=== PATIENT | male | born 1945 | race Two or more races ===

== ENCOUNTER 2016-10-08 18:01 | Emergency (ER) | payer OTHER ==
[~2016-10-08] VITALS: Ht 167.6 cm; Wt 95.3 kg
[~2016-10-08 18:01] MED LIST: ATOR40TA52 PO; CARV3.1240 PO; FURO40TA4 PO; GLIP2.5T28 PO; LISI10TA6 PO; METF-489 PO
[2016-10-09 06:06] VITALS: BP 120/76
== END 2016-10-09 06:36 | disposition home or self-care (01) ==
LOC: ER 19:05
DX: L03.116 Cellulitis of left lower limb (principal); M79.89 Other specified soft tissue disorders; E11.22 Type 2 diabetes mellitus with diabetic chronic kidney disease; I13.0 Hypertensive heart and chronic kidney disease with heart failure and stage 1 through stage 4 chronic kidney disease, or unspecified chronic kidney disease; N18.9 Chronic kidney disease, unspecified; I50.9 Heart failure, unspecified; Z95.1 Presence of aortocoronary bypass graft; J44.9 Chronic obstructive pulmonary disease, unspecified; F12.10 Cannabis abuse, uncomplicated; Z88.0 Allergy status to penicillin; Z79.899 Other long term (current) drug therapy
CPT/HCPCS: 93971

== ENCOUNTER 2016-11-09 11:05 | Emergency (ER) | payer OTHER ==
[~2016-11-09] VITALS: Ht 167.6 cm; Wt 97.5 kg
[2016-11-09 14:06] VITALS: BP 139/76
[2016-11-09] MEDS ORDERED: traMADol HCL 50 MG TAB PO ONE (14:45)
[2016-11-09] MEDS ORDERED: KETOROLAC TROMETH 30 MG/ML 1ML VIAL IV ONE (14:45)
[2016-11-09] MEDS ORDERED: KETOROLAC TROMETH 30 MG/ML 1ML VIAL IM ONE (15:00)
== END 2016-11-09 15:48 | disposition home or self-care (01) ==
LOC: ER 11:23
DX: M51.36 Other intervertebral disc degeneration, lumbar region (principal); M47.896 Other spondylosis, lumbar region; I13.0 Hypertensive heart and chronic kidney disease with heart failure and stage 1 through stage 4 chronic kidney disease, or unspecified chronic kidney disease; I50.9 Heart failure, unspecified; E11.22 Type 2 diabetes mellitus with diabetic chronic kidney disease; Z88.0 Allergy status to penicillin; N18.9 Chronic kidney disease, unspecified; E78.5 Hyperlipidemia, unspecified; Z95.1 Presence of aortocoronary bypass graft; F12.10 Cannabis abuse, uncomplicated; Z87.891 Personal history of nicotine dependence; Z79.899 Other long term (current) drug therapy
CPT/HCPCS: 72100; 96372; J1885

== ENCOUNTER 2017-11-18 00:10 | Inpatient (IN) | payer OTHER ==
[~2017-11-18] VITALS: Ht 180.3 cm; Wt 84.4 kg
[2017-11-18] MEDS ORDERED: ALBUTEROL SULF 2.5 MG/0.5ML(0.5%) NEB SOLN NEB ONE (01:00)
[2017-11-18] MEDS ORDERED: methylPREDNISolone SOD SUCC 125 MG/2 ML VL IV ONE (01:00)
[2017-11-18] MEDS ORDERED: IPRATROPIUM BROM 0.5 MG/2.5ML INH SOL NEB ONE (01:00)
[2017-11-18 01:24] LABS: Urine Bacteria NONE SEEN /hpf (None Seen); Urine Blood Negative /uL (Negative); Urine Mucus FEW (None Seen); Urine Specific Gravity 1.009 (1.001-1.035); Urine WBC 4 /hpf (0 - 3)
[2017-11-18 02:21] LABS: Basophils # (auto) 0.2 uL; Basophils % (auto) 3.1 % (0.0-2.0); Eosinophils # (auto) 0.1 uL; Eosinophils % (auto) 1.6 % (0.0-7.0); Hematocrit 37.4 % (41.0-53.0); Lymphocytes # (auto) 0.7 uL; Mean Corpuscular Hemoglobin 30.1 pg (28.0-32.0); Monocytes # (auto) 0.8 uL; Monocytes % (auto) 12.1 % (0.0-12.0); Neutrophils # (auto) 4.6 uL; Neutrophils % (auto) 72.2 % (37.0-80.0); Nucleated Red Blood Cells % 0.2 %; Platelet Count (auto) 207 10^3/uL (140-450); Red Blood Cells 3.97 10^6/uL (4.5-5.90); Red Cell Distribution Width 17.8 % (11.8-14.3); White Blood Cell 6.4 10^3/uL (4.4-10.8)
[2017-11-18 02:23] LABS: Albumin 3.7 g/dL (3.4-5.0); BUN/Creatinine Ratio 22.8; Calcium 8.7 mg/dL (8.5-10.1)
[2017-11-18 02:26] LABS: Bilirubin, Total 0.7 mg/dL (0.2-1.0); Total Protein 7.5 g/dL (6.4-8.2)
[2017-11-18 02:36] LABS: INR 2.13 (0.9-1.15); Prothrombin Time 23.4 sec (9.37-12.3)
[2017-11-18] MEDS ORDERED: LORazepam 2MG/ML-1ML VIAL IV ONE (04:15)
[2017-11-18] MEDS ORDERED: NITROGLYCERIN 0.4 MG SL TAB SL PRN (10:15)
[2017-11-18] MEDS ORDERED: POTASSIUM CHL 20MEQ/100ML 100 ML IV ONE (10:15)
[2017-11-18] MEDS ORDERED: FUROSEMIDE 40 MG/4 ML VIAL IV ONE (10:15)
[2017-11-18] MEDS ORDERED: DEXTROSE (50%) 50ML SYRG IV PRN (10:15)
[2017-11-18] MEDS ORDERED: ONDANSETRON HCL 4 MG/2 ML VIAL IV PRN (10:15)
[2017-11-18] MEDS ORDERED: HYDROcodone-ACET 5/325MG TAB PO PRN (10:15)
[2017-11-18] MEDS ORDERED: MORPHINE SULFATE 4 MG/ML SYR/VIAL IV PRN ×2 (10:15)
[2017-11-18] MEDS ORDERED: FUROSEMIDE 20 MG/2 ML VIAL IV ONE (10:30)
[2017-11-18] MEDS ORDERED: glipiZIDE 5 MG TAB PO SCH (10:45)
[2017-11-18 10:47] LABS: Cholesterol 132 mg/dL (< 200); HDL Cholesterol 60 mg/dL (40-59); LDL Cholesterol 75 mg/dL (< 100); Triglycerides 38 mg/dL (< 150)
[2017-11-18] MEDS: CARVEDILOL 3.125 MG TAB PO SCH ×2 (11:01→21:01)
[2017-11-18] MEDS: glipiZIDE 5 MG TAB PO SCH ×2 (11:01→19:10)
[2017-11-18] MEDS: LISINOPRIL 10 MG TAB PO SCH (11:02)
[2017-11-18] MEDS ORDERED: POTASSIUM CHLORIDE 20 MEQ, LIDOCAINE 1% (LOCAL ANESTH.) 2 ML in SODIUM CHL 0.9% 100 ML IV ONE (11:30)
[2017-11-18] MEDS: ACCU-CHEK COMFORT CURVE STRIP VI SCH ×3 (11:31→21:02)
[2017-11-18] MEDS: InsuLIN REG 1unit/0.01ml Soln (100units/ml) SC SCH ×3 (11:32→21:30)
[2017-11-18] MEDS: IPRATROPIUM BROM 0.5 MG/2.5ML INH SOL NEB SCH ×2 (13:01→18:10)
[2017-11-18] MEDS: ALBUTEROL SULF 2.5 MG/0.5ML(0.5%) NEB SOLN NEB SCH ×2 (13:01→18:10)
[2017-11-18] MEDS ORDERED: WARFARIN SODIUM 2 MG TAB PO ONE (17:00)
[2017-11-18 18:33] VITALS: BP 106/70
[2017-11-18] MEDS: FUROSEMIDE 40 MG/4 ML VIAL IV SCH (19:09)
[2017-11-18 19:29] VITALS: BP 106/70
[2017-11-18] MEDS: ATORVASTATIN 20 MG TAB PO SCH (21:02)
[2017-11-18 21:22] VITALS: BP 112/68
[2017-11-18 22:00] VITALS: BP 112/68
[2017-11-18] MEDS ORDERED: GLIPIZIDE 2.5 MG PO SCH (22:00)
[2017-11-19] MEDS ORDERED: TEMAZEPAM 15 MG CAP PO PRN (00:15)
[2017-11-19 05:00] VITALS: BP 93/54
[2017-11-19 05:39] LABS: Basophils # (auto) 0 uL; Basophils % (auto) 0.1 % (0.0-2.0); Eosinophils # (auto) 0 uL; Hematocrit 37.9 % (41.0-53.0); Hemoglobin 12.2 g/dL (13.5-17.5); Lymphocytes # (auto) 0.9 uL; Lymphocytes % (auto) 8.3 % (10.0-50.0); Mean Corpuscular Hemoglobin 30.1 pg (28.0-32.0); Mean Corpuscular Hgb Conc. 32.3 g/dL (32.0-36.0); Mean Corpuscular Volume 93.2 fL (80.0-100.0); Monocytes # (auto) 1.3 uL; Monocytes % (auto) 11.7 % (0.0-12.0); Neutrophils # (auto) 8.7 uL; Neutrophils % (auto) 79.9 % (37.0-80.0); Nucleated Red Blood Cells % 0.1 %; Platelet Count (auto) 238 10^3/uL (140-450); Red Blood Cells 4.06 10^6/uL (4.5-5.90); Red Cell Distribution Width 17.9 % (11.8-14.3); White Blood Cell 10.9 10^3/uL (4.4-10.8)
[2017-11-19] MEDS: FUROSEMIDE 40 MG/4 ML VIAL IV SCH (05:41)
[2017-11-19 05:56] LABS: INR 3.4 (0.9-1.15); Partial Thromboplastin Time 38.5 sec (22.64-33.71); Prothrombin Time 37.5 sec (9.37-12.3)
[2017-11-19 05:57] LABS: Potassium 3.9 mmol/L (3.5-5.1)
[2017-11-19 06:10] LABS: Calcium 8.7 mg/dL (8.5-10.1); Magnesium 2.3 mg/dL (1.6-2.6)
[2017-11-19] MEDS: ALBUTEROL SULF 2.5 MG/0.5ML(0.5%) NEB SOLN NEB SCH ×3 (08:45→19:06)
[2017-11-19] MEDS: IPRATROPIUM BROM 0.5 MG/2.5ML INH SOL NEB SCH ×3 (08:45→19:06)
[2017-11-19 09:00] VITALS: BP 111/67
[2017-11-19] MEDS: LISINOPRIL 10 MG TAB PO SCH (10:00)
[2017-11-19] MEDS ORDERED: PATIENTS OWN MEDICATION (Atorvastatin Calcium 1 TAB) PO SCH (10:00)
[2017-11-19] MEDS: CARVEDILOL 3.125 MG TAB PO SCH ×2 (10:00→22:00)
[2017-11-19] MEDS: ACCU-CHEK COMFORT CURVE STRIP VI SCH ×3 (11:30→22:05)
[2017-11-19 13:00] VITALS: BP 119/70
[2017-11-19 16:39] VITALS: BP 104/65
[2017-11-19] MEDS: InsuLIN REG 1unit/0.01ml Soln (100units/ml) SC SCH ×2 (17:00→22:00)
[2017-11-19] MEDS: glipiZIDE 5 MG TAB PO SCH (18:00)
[2017-11-19] MEDS ORDERED: WARF4TAB33 PO (20:04)
[2017-11-19] MEDS ORDERED: TRAZ150T79 PO (20:04)
[2017-11-19] MEDS ORDERED: MIRT15TA3 PO (20:04)
[2017-11-19] MEDS ORDERED: AMIO200T33 PO (20:04)
[2017-11-19 22:00] VITALS: BP 131/72
[2017-11-19] MEDS ORDERED: traZODone HCL 50 MG TAB PO ONE (22:00)
[2017-11-19] MEDS: ATORVASTATIN 20 MG TAB PO SCH (22:04)
[2017-11-20] MEDS: IPRATROPIUM BROM 0.5 MG/2.5ML INH SOL NEB SCH (00:15)
[2017-11-20] MEDS: ALBUTEROL SULF 2.5 MG/0.5ML(0.5%) NEB SOLN NEB SCH (00:15)
== END 2017-11-20 01:15 | disposition short-term general hospital (02) | DRG 189 ==
LOC: EDBD 00:10 → ER 00:10 → TELE 00:11 → TELE-WESTW 18:35
PROVIDERS: ADMIT Internal Medicine; ATTEND Family Medicine
PROC: 5A09357 Assistance with Respiratory Ventilation, Less than 24 Consecutive Hours, Continuous Positive Airway Pressure (ICD-10-PCS; principal; 2017-11-18)
DX: J96.20 Acute and chronic respiratory failure, unspecified whether with hypoxia or hypercapnia (principal); I50.43 Acute on chronic combined systolic (congestive) and diastolic (congestive) heart failure; E11.22 Type 2 diabetes mellitus with diabetic chronic kidney disease; Z99.81 Dependence on supplemental oxygen; E66.01 Morbid (severe) obesity due to excess calories; I13.0 Hypertensive heart and chronic kidney disease with heart failure and stage 1 through stage 4 chronic kidney disease, or unspecified chronic kidney disease; J44.1 Chronic obstructive pulmonary disease with (acute) exacerbation; N18.3 Chronic kidney disease, stage 3 (moderate); D53.9 Nutritional anemia, unspecified; E78.5 Hyperlipidemia, unspecified; F12.10 Cannabis abuse, uncomplicated; N40.0 Benign prostatic hyperplasia without lower urinary tract symptoms; F32.9 Major depressive disorder, single episode, unspecified; I08.0 Rheumatic disorders of both mitral and aortic valves; G47.00 Insomnia, unspecified; F17.210 Nicotine dependence, cigarettes, uncomplicated; E66.9 Obesity, unspecified; Z95.2 Presence of prosthetic heart valve; Z79.01 Long term (current) use of anticoagulants; Z80.6 Family history of leukemia; Z82.3 Family history of stroke; Z82.49 Family history of ischemic heart disease and other diseases of the circulatory system; Z83.3 Family history of diabetes mellitus; Z91.14 Patient's other noncompliance with medication regimen; Z91.19 Patient's noncompliance with other medical treatment and regimen; Z95.1 Presence of aortocoronary bypass graft; Z68.26 Body mass index [BMI] 26.0-26.9, adult; Z79.899 Other long term (current) drug therapy; Z80.8 Family history of malignant neoplasm of other organs or systems; Z88.0 Allergy status to penicillin
CPT/HCPCS: 36415; 36600; 71045; 74176; 80048; 80053; 80061; 81001; 82805; 82962; 83036; 83735; 83880; 84484; 85025; 85379; 85610; 85730; 87081; 93005; 93306; 94640; 94660; 96361; 96374; 96375; J1815; J2001; J3480

== ENCOUNTER 2019-08-11 14:30 | Emergency (ER) | payer OTHER ==
[~2019-08-11] VITALS: Ht 167.6 cm; Wt 95.3 kg
[~2019-08-11 14:30] MED LIST changes: +AMIO200T33 PO; +MIRT1TAB38 PO; +TRAZ150T79 PO; +WARF4TAB33 PO
[2019-08-11 15:12] LABS: Basophils # (auto) 0.1 uL; Basophils % (auto) 1.1 % (0.0-2.0); Eosinophils # (auto) 0.2 uL; Hematocrit 32.9 % (41.0-53.0); Hemoglobin 11.1 g/dL (13.5-17.5); Lymphocytes # (auto) 1.2 uL; Lymphocytes % (auto) 22.1 % (10.0-50.0); Mean Corpuscular Hgb Conc. 33.8 g/dL (32.0-36.0); Mean Corpuscular Volume 100.7 fL (80.0-100.0); Monocytes # (auto) 0.5 uL; Monocytes % (auto) 9.4 % (0.0-12.0); Neutrophils # (auto) 3.6 uL; Neutrophils % (auto) 63.4 % (37.0-80.0); Platelet Count (auto) 237 10^3/uL (140-450); Red Blood Cells 3.27 10^6/uL (4.5-5.90); Red Cell Distribution Width 18.3 % (11.8-14.3); White Blood Cell 5.6 10^3/uL (4.4-10.8)
[2019-08-11 15:30] LABS: Albumin 4.1 g/dL (3.4-5.0); Calcium 8.7 mg/dL (8.5-10.1); Potassium 3.8 mmol/L (3.5-5.1)
[2019-08-11 15:33] LABS: BUN/Creatinine Ratio 18.9; Bilirubin, Total 1.2 mg/dL (0.2-1.0); Total Protein 7.6 g/dL (6.4-8.2)
[2019-08-11 20:00] VITALS: BP 116/68
== END 2019-08-11 19:58 | disposition home or self-care (01) ==
LOC: ER 14:37
DX: I13.0 Hypertensive heart and chronic kidney disease with heart failure and stage 1 through stage 4 chronic kidney disease, or unspecified chronic kidney disease (principal); E11.22 Type 2 diabetes mellitus with diabetic chronic kidney disease; N18.3 Chronic kidney disease, stage 3 (moderate); I50.9 Heart failure, unspecified; J44.9 Chronic obstructive pulmonary disease, unspecified; E78.5 Hyperlipidemia, unspecified
CPT/HCPCS: 36415; 74176; 80053; 85025

== ENCOUNTER 2019-12-12 16:36 | Emergency (ER) | payer OTHER ==
[~2019-12-12] VITALS: Ht 167.6 cm; Wt 102.1 kg
[2019-12-12 17:01] VITALS: BP 133/78
[2019-12-12 18:05] LABS: Basophils # (auto) 0.1 10 ^3/uL (0-0.2); Basophils % (auto) 1.4 % (0.0-2.0); Eosinophils # (auto) 0.2 10 ^3/uL (0-0.8); Eosinophils % (auto) 4.3 % (0.0-7.0); Hematocrit 32.3 % (41.0-53.0); Hemoglobin 10.8 g/dL (13.5-17.5); Lymphocytes # (auto) 1.1 10 ^3/uL (0.4-5.4); Lymphocytes % (auto) 22.8 % (10.0-50.0); Mean Corpuscular Hemoglobin 33.8 pg (28.0-32.0); Mean Corpuscular Hgb Conc. 33.4 g/dL (32.0-36.0); Mean Corpuscular Volume 101.2 fL (80.0-100.0); Monocytes # (auto) 0.6 10 ^3/uL (0-1.3); Neutrophils # (auto) 2.8 10 ^3/uL (1.6-8.6); Neutrophils % (auto) 58.5 % (37.0-80.0); Platelet Count (auto) 160 10^3/uL (140-450); Red Blood Cells 3.19 10^6/uL (4.5-5.90); Red Cell Distribution Width 19.3 % (11.8-14.3); White Blood Cell 4.8 10^3/uL (4.4-10.8)
[2019-12-12 18:09] LABS: Albumin 3.4 g/dL (3.4-5.0); Anion Gap 2 (5-15); Blood Urea Nitrogen 18 mg/dL (7-18); Calcium 9.1 mg/dL (8.5-10.1); Carbon Dioxide 33 mmol/L (21-32); Chloride 108 mmol/L (98-107); Glucose 120 mg/dL (74-106); Potassium 4.2 mmol/L (3.5-5.1); Sodium 143 mmol/L (136-145)
[2019-12-12 18:14] LABS: Alanine Aminotransferase 36 U/L (16-61); Alkaline Phosphatase 70 U/L (45-117); Aspartate Aminotransferase 63 U/L (15-37); BUN/Creatinine Ratio 18.4; Bilirubin, Total 0.9 mg/dL (0.2-1.0); GFR African American 97 mL/min; GFR Non-African American 80 mL/min; Total Protein 6.8 g/dL (6.4-8.2)
== END 2019-12-13 02:29 | disposition left against medical advice (07) ==
LOC: ER 16:36
DX: R06.02 Shortness of breath (principal); Z53.21 Procedure and treatment not carried out due to patient leaving prior to being seen by health care provider
CPT/HCPCS: 36415; 71046; 80053; 84484; 85025; 93005

== ENCOUNTER 2020-06-21 21:48 | Emergency (ER) | payer OTHER ==
[~2020-06-21] VITALS: Ht 167.6 cm; Wt 90.7 kg
[~2020-06-21 21:48] MED LIST changes: +LISI-648 PO; -LISI10TA6 PO; -TRAZ150T79 PO; +TRAZ1TAB12 PO
[2020-06-21 22:45] LABS: Basophils # (auto) 0 10 ^3/uL (0-0.2); Basophils % (auto) 0.1 % (0.0-2.0); Eosinophils # (auto) 0 10 ^3/uL (0-0.8); Eosinophils % (auto) 0.1 % (0.0-7.0); Hematocrit 45.1 % (41.0-53.0); Hemoglobin 15.3 g/dL (13.5-17.5); Lymphocytes # (auto) 0.6 10 ^3/uL (0.4-5.4); Mean Corpuscular Hgb Conc. 33.9 g/dL (32.0-36.0); Mean Corpuscular Volume 97.2 fL (80.0-100.0); Monocytes # (auto) 0.9 10 ^3/uL (0-1.3); Neutrophils # (auto) 7.1 10 ^3/uL (1.6-8.6); Neutrophils % (auto) 82.8 % (37.0-80.0); Nucleated Red Blood Cells % 0.1 %; Platelet Count (auto) 115 10^3/uL (140-450); Red Blood Cells 4.64 10^6/uL (4.5-5.90); Red Cell Distribution Width 15.8 % (11.8-14.3); White Blood Cell 8.6 10^3/uL (4.4-10.8)
[2020-06-21 22:58] LABS: INR 1.4 (0.9-1.15); Partial Thromboplastin Time 29.9 sec (23.0-31.2)
[2020-06-21 23:00] LABS: Chloride 102 mmol/L (98-107); Potassium 4.2 mmol/L (3.5-5.1); Sodium 137 mmol/L (136-145)
[2020-06-21 23:09] LABS: Alanine Aminotransferase 36 U/L (16-61); Albumin 3.4 g/dL (3.4-5.0); Alkaline Phosphatase 75 U/L (45-117); Amylase 93 U/L (25-115); Anion Gap 2 (5-15); Aspartate Aminotransferase 31 U/L (15-37); BUN/Creatinine Ratio 34.7; Bilirubin, Total 0.6 mg/dL (0.2-1.0); Blood Urea Nitrogen 34 mg/dL (7-18); Carbon Dioxide 33 mmol/L (21-32); GFR African American 97 mL/min; GFR Non-African American 80 mL/min; Glucose 104 mg/dL (74-106); Lipase 92 U/L (73-393); Magnesium 2.6 mg/dL (1.6-2.6); Total Protein 7.1 g/dL (6.4-8.2)
[2020-06-22] MEDS ORDERED: SODIUM CHLORIDE 0.9% 1,000 ML IV ONE
[2020-06-22] MEDS ORDERED: ONDANSETRON HCL 4 MG/2 ML VIAL IV ONE
[2020-06-22 01:07] VITALS: BP 122/79
[2020-06-22 01:20] LABS: Urine Amorphous Crystal FEW /hpf (None Seen); Urine Bacteria FEW /hpf (None Seen); Urine Blood Negative /uL (Negative); Urine Mucus FEW (None Seen); Urine Specific Gravity 1.023 (1.001-1.035); Urine WBC 3 /hpf (0 - 3)
[2020-06-22] MEDS ORDERED: IPRATROPIUM BROM 0.5 MG/2.5ML INH SOL NEB ONE (01:30)
[2020-06-22] MEDS ORDERED: MAGNESIUM CITRATE SOLUTION 300 ML BTL PO ONE (01:30)
[2020-06-22] MEDS ORDERED: ALBUTEROL SULF 2.5 MG/0.5ML(0.5%) NEB SOLN NEB ONE (01:30)
== END 2020-06-22 01:50 | disposition home or self-care (01) ==
LOC: ER 21:48
DX: J44.9 Chronic obstructive pulmonary disease, unspecified (principal); K29.70 Gastritis, unspecified, without bleeding; E11.9 Type 2 diabetes mellitus without complications; R53.1 Weakness; I10 Essential (primary) hypertension; Z88.0 Allergy status to penicillin; Z79.899 Other long term (current) drug therapy
CPT/HCPCS: 36415; 71045; 71250; 74176; 80053; 81001; 82150; 83605; 83690; 83735; 83880; 84484; 85025; 85610; 85730; 94640; 96360; 99285; J7030; J7644